=== PATIENT | male | born 1975 | race Two or more races ===

== ENCOUNTER 2016-04-18 11:44 | Emergency (ER) | payer SELFPAY ==
[2016-04-18] MEDS ORDERED: IOPAMIDOL 300 (61%) 150 ML VIAL IV ONE (11:45)
[2016-04-18 13:02] LABS: URINE APPEARANCE CLEAR; URINE BILIRUBIN NEGATIVE (NEGATIVE); URINE BLOOD NEGATIVE (NEGATIVE); URINE COLOR YELLOW; URINE GLUCOSE (UA) NEGATIVE (NEGATIVE); URINE LEUKOCYTE ESTERASE NEGATIVE (NEGATIVE); URINE NITRITE NEGATIVE (NEGATIVE); URINE PROTEIN NEGATIVE (NEGATIVE); URINE UROBILINOGEN NORMAL (0-1 mg/dl)
[2016-04-18] MEDS ORDERED: ONDANSETRON 4 MG/2ML 2 ML VIAL ONE (13:23)
[2016-04-18] MEDS ORDERED: SODIUM CHLORIDE 0.9% 1,000 ML ONE (13:23)
[2016-04-18] MEDS ORDERED: HYDROMORPHONE HCL 1 MG/ML SYRINGE ONE (13:23)
[2016-04-18 14:13] LABS: ABSOLUTE NEUTROPHIL COUNT 2.6 K/mm3 (1.8-7.7); BASO % 0.5 % (0.2-1.0); EOS # 1.2 (0.0-0.5); EOS % 17.8 % (0.9-2.9); HEMATOCRIT 46.8 % (32.0-52.0); HEMOGLOBIN 16.4 gm/l (14.0-18.0); IMM NEUT% 0.3 % (0-1); LYMPH # 2.2 (1.0-4.8); MEAN CELL VOLUME 91.2 fl (80.0-94.0); MEAN PLATELET VOLUME 10.7 fl (7.4-10.4); MONO # 0.6 (0.0-0.8); MONO % 8.9 % (4-12); NEUT % 39.5 % (43-75); PLATELET COUNT 226 K/mm3 (130-400); RED CELL DISTRIBUTION WIDTH 12.8 % (11.5-14.5)
[2016-04-18 14:26] LABS: ALB/GLOB RATIO 1.3 (>1.0); ALBUMIN 4.4 gm/dL (3.5-5.7); CALCIUM 9.9 mg/dL (8.6-10.3)
--- NOTE | 2016-04-18 14:29 | CT ---
Name: BOB ALAN Exam: CT abdomen pelvis with contrast Comparison: None History: Right-sided abdominal pain Procedure: Helical CT using multidetector technique was applied to the abdomen and pelvis during intravenous administration of 125 cc Isovue-300. No oral contrast was given per ordering physician. An automated dose reduction technique was used to minimize patient radiation dose. Findings: CT abdomen (contrast enhanced): Granulomas are identified within the lung bases. Heart is not enlarged. There is no pericardial effusion. Fatty infiltration liver is identified. Gallbladder, pancreas, spleen, adrenal glands, kidneys, aorta, IVC, portal vein, stomach and small bowel are normal. Diverticulosis of the descending colon is present. There is thickening of the distal descending colon. There is no free air, free fluid or suspicious adenopathy. Regional skeleton is within normal limits. CT pelvis (contrast enhanced): Bladder, prostate and seminal vesicles are normal. There is minimal sigmoid colon diverticulosis. There is thickening of the sigmoid colon and rectum. Trace free fluid is present. There is no free air or abscess. Small bowel and appendix are normal. There is a massive metallic fragment in the right groin. Reactive lymph nodes are noted within both groins. Impression: 1. Thickening of the distal descending colon, sigmoid colon and rectum compatible with colitis. There is no current evidence for perforation, abscess or obstruction. There is mild diverticulosis throughout this region. 2. Normal appendix 3. Trace free fluid. There is no free air or abscess 4. Fatty infiltration liver 5. Prior granulomatous infection Note: The above report was uploaded to [facility]'s electronic medical records system at 1425 hours.
== END 2016-04-18 16:15 | disposition home or self-care (01) ==
LOC: ED 11:44
DX: K52.9 Noninfective gastroenteritis and colitis, unspecified (principal); F17.210 Nicotine dependence, cigarettes, uncomplicated; Z79.82 Long term (current) use of aspirin
CPT/HCPCS: 83690; 85025; 80053; 81003; 74177; 96375; 99284 ×2; 96374; 96361; J1170; J2405; J7030; Q9967